=== PATIENT | female | born 1950 | race Caucasian/White ===

== ENCOUNTER → 2018-05-28 | Outpatient (CLI) | payer MEDICARE | LOC: RAD 14:35 | PROVIDERS: ATTEND Family Medicine | DX: Z01.818 Encounter for other preprocedural examination (principal); C44.321 Squamous cell carcinoma of skin of nose | CPT/HCPCS: 93005 ==

== ENCOUNTER → 2020-07-16 | Outpatient (CLI) | payer MEDICARE | LOC: RAD 12:06 | PROVIDERS: ATTEND Family Medicine | DX: Z01.818 Encounter for other preprocedural examination (principal) | CPT/HCPCS: 93005 ==